=== PATIENT | female | born 1930 | race Hispanic/Latino ===

== ENCOUNTER → 2020-05-27 | Outpatient (CLI) | payer OTHER | END | disposition home or self-care (01) | LOC: RAH 14:20 | PROVIDERS: ATTEND Family Medicine | DX: I73.9 Peripheral vascular disease, unspecified (principal) | CPT/HCPCS: 93925 ==

== ENCOUNTER → 2020-06-22 | Outpatient (CLI) | payer OTHER ==
[~2020-06-22] MED LIST: REGADENOSON 0.4 MG/5 ML PF SYG IVP SCH
== END | disposition home or self-care (01) ==
LOC: RAH 09:20
PROVIDERS: ATTEND Family Medicine
DX: I20.9 Angina pectoris, unspecified (principal); R07.9 Chest pain, unspecified
CPT/HCPCS: 78452; 93017; 96374; A9500 ×2; J2785